=== PATIENT | female | born 1960 | race Caucasian/White ===

== ENCOUNTER 2019-01-18 16:39 | Observation (INO) | payer BC ==
[~2019-01-18] VITALS: Ht 175.3 cm; Wt 84.4 kg
[~2019-01-18 16:39] MED LIST: AMOXICILLIN/PO500 MG PO; HYZAAR1 TA2 PO; LEVOTHYROXIN25 MC1 PO; METOPROL TAR25 MG PO
--- NOTE | 2019-01-18 16:48 | NUR ---
PT TO ROOM FOR EXAM
[2019-01-18 17:11] LABS: URINE BILIRUBIN - DIPSTICK NEGATIVE (NEGATIVE); URINE BLOOD DIPSTICK NEGATIVE (NEGATIVE); URINE COLOR YELLOW; URINE GLUCOSE - DIPSTICK NEGATIVE (NEGATIVE); URINE KETONE NEGATIVE (NEGATIVE); URINE PROTEIN - DIPSTICK NEGATIVE (NEG-TRACE); URINE UROBILINOGEN - DIPSTICK 0.2 E.U./dL (0.2)
[2019-01-18 17:12] LABS: URINE LEUK ESTERASE SMALL (NEGATIVE); URINE NITRITE - DIPSTICK POSITIVE (Negative)
[2019-01-18 17:25] LABS: URINE RBC 0-2 RBC/hpf (0-5)
[2019-01-18 17:26] LABS: URINE BACTERIA FEW hpf; URINE SQUAMOUS EPITHELIAL CELL FEW EPI/hpf (0-FEW)
[2019-01-18 17:30] LABS: HEMATOCRIT 39.6 % (37.0-47.0); HEMOGLOBIN 13.6 g/dl (12.0-16.0); IMMATURE GRANULOCYTES 0.5 % (0.0-5.0); MEAN CELL VOLUME 94.1 fL CALC (80.0-100.0); MEAN CORPUSCULAR HGB 32.3 pG CALC (26.0-32.0); MEAN CORPUSCULAR HGB CONC 34.3 g/L CALC (32.0-36.0); NEUT# 5.53 thou/uL (2.00-7.15); RED BLOOD COUNT 4.21 mill/uL (4.20-5.60); RED CELL DISTRI WIDTH 12.8 % (11.5-15.5)
[2019-01-18 17:41] LABS: ALBUMIN 4.4 g/dL (3.2-5.0); ALKALINE PHOSPHATASE 170 u/l (38-126); AMYLASE 43 u/l (30-110); ANION GAP 15 (6-22 (CALC)); BILIRUBIN, TOTAL 0.7 mg/dL (0.0-1.4); BUN 14 mg/dL (7-17); BUN/CREATININE RATIO 14 (12-20 (CALC)); CARBON DIOXIDE 29 mmol/l (22-30); CHLORIDE 99 mmol/l (95-108); GFR 57 ML/MIN (>=60 (CALC)); GFR FOR AFR.AMER. > 60 ML/MIN (>=60 (CALC)); LIPASE 59 u/l (23-300); POTASSIUM 2.7 mmol/l (3.5-5.1); SGOT/AST 55 u/l (14-36); SODIUM 140 mmol/l (137-146); TOTAL PROTEIN 7.4 g/dL (6.3-8.2)
--- NOTE | 2019-01-18 17:45 | NUR ---
PATIENT RESTING AWIAITNG LAB RESULTS. PATIENT DENIES ANY N, OR VOMITING AT THIS TIME
--- NOTE | 2019-01-18 18:46 | NUR ---
MD AT BEDSIDE DISCUSSING RESULTS WITH PATIENT. PATIENT DENIES ANY PAIN AT THIS TIME
--- NOTE | 2019-01-18 19:02 | NUR ---
REPORT TO SIMON HECTOR
--- NOTE | 2019-01-18 19:03 | NUR ---
RECEIVED REPORT FROM TAWNY BALLARD
--- NOTE | 2019-01-18 19:20 | NUR ---
REPORT CALLED TO .
--- NOTE | 2019-01-18 19:33 | NUR ---
SECOND LACTIC ACID DRAWN BY LAB AND TO MS VIA W/C. ON TELEMETRY WITH POTASSIUM IN IV INFUSING RX
--- NOTE | 2019-01-18 19:35 | NUR ---
TO MS VIA W/C
[2019-01-18 19:36] VITALS: BP 134/71
--- NOTE | 2019-01-18 19:36 | NUR ---
PATIENT ARRIVED TO FLOOR, TRANSPORTED VIA WHEELCHAIR, PATIENT SETTLED IN BED, ORIENTED TO ROOM AND CALL LIGHT SYSTEM.WILL CONTINUE TO MONITOR.
--- NOTE | 2019-01-18 21:00 | NUR ---
PATIENT CURRENTLY SITTING IN BED, IN ROOM, WITH AN ONGOING IV OF NS +[id number] INFUSING WELL ON LAC @ 125CC/HR, ON TELE SR 69, DENIES N/V AT THIS TIME, CALL LIGHT AT REACH.
--- NOTE | 2019-01-19 | NUR ---
PATIENT RESTING IN BED EYES CLOSED NO DISCOMFORTS NOTED AT THIS TIME, CALL LIGHT AT REACH.
[2019-01-19 03:50] VITALS: BP 140/82
--- NOTE | 2019-01-19 04:00 | NUR ---
PATIENT ASSISTED TO THE BATHROOM, DENIES PAIN OR DISCOMFORT, DENIES N/V, ASSISTED BACK TO BED, CALL LIGHT AT REACH.
[2019-01-19 05:19] LABS: MEAN CELL VOLUME 96.9 fL CALC (80.0-100.0); MEAN CORPUSCULAR HGB 32.5 pG CALC (26.0-32.0); MEAN CORPUSCULAR HGB CONC 33.5 g/L CALC (32.0-36.0); RED BLOOD COUNT 3.51 mill/uL (4.20-5.60); RED CELL DISTRI WIDTH 12.8 % (11.5-15.5)
[2019-01-19 05:21] LABS: HEMOGLOBIN 11.4 g/dl (12.0-16.0)
[2019-01-19 05:37] LABS: ANION GAP 10 (6-22 (CALC)); BUN 11 mg/dL (7-17); BUN/CREATININE RATIO 13 (12-20 (CALC)); CARBON DIOXIDE 28 mmol/l (22-30); CHLORIDE 106 mmol/l (95-108); CREATININE 0.9 mg/dL (0.5-1.0); GFR > 60 ML/MIN (>=60 (CALC)); GFR FOR AFR.AMER. > 60 ML/MIN (>=60 (CALC)); MAGNESIUM 1.6 mg/dL (1.6-2.3); SODIUM 141 mmol/l (137-146)
[2019-01-19 05:52] LABS: POTASSIUM 3.4 mmol/l (3.5-5.1)
--- NOTE | 2019-01-19 07:10 | NUR ---
PT REPORT RECIEVED FROM TAWNY JUAREZ. PT SLEEPING. NO S/S OF DISTRESS. CALL LIGHT IN REACH. WILL CONTINUE TO MONITOR.
[2019-01-19 08:37] VITALS: BP 104/55
--- NOTE | 2019-01-19 08:37 | NUR ---
PT A/O X3. SPEECH IS CLEAR. RESP EVEN AND UNLABORED. LUNG SOUNDS CLEAR. BOWEL SOUNDS ACTIVE X4. STRONG RADIAL AND PEDAL PULSES. #20 LAC NS @100. SITE APPEARS HEALTHY. SKIN INTACT. PT DENIES ANY PAIN OR NEEDS. POC DISCUSSED. SAFETY PRECAUTIONS IN PLACE. CALL LIGHT IN REACH. WILL CONTINUE TO MONITOR.
[2019-01-19 11:09] VITALS: BP 102/50
[2019-01-19] MEDS ORDERED: ZOFRAN ODT4 MG PO (12:25)
[2019-01-19] MEDS ORDERED: KEFLEX500 MG PO (12:25)
--- NOTE | 2019-01-19 12:36 | NUR ---
PT WATCHING TELEVISION. NO C/O PAIN OR NEEDS. CALL LIGHT IN REACH. WILL CONTINUE TO MONITOR.
== END 2019-01-19 14:04 | disposition home or self-care (01) | DRG 392 ==
LOC: ED 16:39 → ED-I 18:36 → ED 18:49 → MS2 18:50
PROVIDERS: Emergency Medicine; ADMIT Internal Medicine; ATTEND Internal Medicine
DX: A08.4 Viral intestinal infection, unspecified (principal); N39.0 Urinary tract infection, site not specified; K51.90 Ulcerative colitis, unspecified, without complications; E87.6 Hypokalemia; B96.20 Unspecified Escherichia coli [E. coli] as the cause of diseases classified elsewhere; I10 Essential (primary) hypertension; M19.90 Unspecified osteoarthritis, unspecified site
CPT/HCPCS: G0378; J1650; Q9967

== ENCOUNTER 2023-03-30 21:19 | Emergency (ER) | payer BC ==
[~2023-03-30] VITALS: Ht 175.3 cm; Wt 79.0 kg
[~2023-03-30 21:19] MED LIST changes: +KEFLEX500 MG PO; +ZOFRAN ODT4 MG PO
[2023-03-30 21:26] VITALS: BP 176/92
[2023-03-30 21:30] VITALS: BP 153/91
[2023-03-30 22:00] LABS: BASO% 0.5 % (0-3); EOS% 0.3 % (0-8); HEMATOCRIT 35.8 % (37.0-47.0); IMMATURE GRANULOCYTES 0.3 % (0.0-5.0); LYMPH% 25.5 % (15-41); MEAN CELL VOLUME 91.6 fL CALC (80.0-100.0); MEAN CORPUSCULAR HGB 30.7 pG CALC (26.0-32.0); MEAN CORPUSCULAR HGB CONC 33.5 g/dL CAL (32.0-36.0); MONO% 6.8 % (2-13); NEUT# 6.07 thou/uL (2.00-7.15); NEUT% 66.6 % (42-76); RED BLOOD COUNT 3.91 mill/uL (4.20-5.60); RED CELL DISTRI WIDTH 12.7 % (11.5-15.5)
[2023-03-30 22:10] LABS: ALBUMIN 4.2 g/dL (3.2-5.0); BILIRUBIN, TOTAL 0.4 mg/dL (0.02-1.3); CREATININE 1.3 mg/dL (0.5-1.0); POTASSIUM 3.8 mmol/l (3.5-5.1); TOTAL PROTEIN 7.4 g/dL (6.3-8.2)
[2023-03-30] MEDS ORDERED: LORTAB 1010 MG PO (22:27)
[2023-03-30] MEDS ORDERED: BACTRIM DS1 TAB PO (22:27)
[2023-03-30] MEDS ORDERED: KEFLEX500 MG PO (22:27)
[2023-03-30 22:37] VITALS: BP 153/91
== END 2023-03-30 22:55 | disposition home or self-care (01) | DRG 125 ==
LOC: ED 21:19
PROVIDERS: Emergency Medicine
DX: H01.004 Unspecified blepharitis left upper eyelid (principal); J34.0 Abscess, furuncle and carbuncle of nose; I10 Essential (primary) hypertension

== ENCOUNTER 2024-05-25 08:09 | Day surgery (SDC) | payer BC ==
[~2024-05-25] VITALS: Ht 172.7 cm; Wt 78.9 kg
[~2024-05-25 08:09] MED LIST changes: +AMLODIPINE BESYL5 MG PO; +BACTRIM DS1 TAB PO; +FLEXERIL5 M1 PO; +GABAPENTIN300 M2 PO; +HYDROCHLOROT25 MG PO; +LORTAB 1010 MG PO; +METFORMIN500 M2 PO; +OMEPRAZOLE DR40 MG PO; +ONDANSETRON4 MG PO; +TAMSULOSIN0.4 MG PO; +TORADOL PO
[2024-05-25] MEDS ORDERED: FAMOTIDINE 10MG/ML 2ML SDV IV ONE (08:14)
[2024-05-25] MEDS ORDERED: SODIUM CHLORIDE 0.9% 1,000 ML IV ONE ×2 (08:15→09:18)
[2024-05-25 10:32] VITALS: BP 127/76
[2024-05-25] MEDS ORDERED: PROPOFOL 200 MG/20 ML VIAL IV ONE (15:08)
[2024-05-25] MEDS ORDERED: LIDOCAINE HCL 2% 2ML SDV IV ONE (15:08)
[2024-05-25] MEDS ORDERED: GLYCOPYRROLATE 0.2 MG/ML IV ONE (15:08)
== END 2024-05-25 10:40 | disposition home or self-care (01) | DRG 812 ==
LOC: ENDO 08:09 → ORM 10:05 → ENDO 10:40 → ORM 11:30
PROVIDERS: ATTEND Internal Medicine Gastroenterology
PROC: 0DBK8ZX Excision of Ascending Colon, Via Natural or Artificial Opening Endoscopic, Diagnostic (ICD-10-PCS; principal; 2024-05-25)
PROC: 0DBL8ZX Excision of Transverse Colon, Via Natural or Artificial Opening Endoscopic, Diagnostic (ICD-10-PCS; 2024-05-25)
PROC: 0DBN8ZX Excision of Sigmoid Colon, Via Natural or Artificial Opening Endoscopic, Diagnostic (ICD-10-PCS; 2024-05-25)
PROC: 0DBP8ZX Excision of Rectum, Via Natural or Artificial Opening Endoscopic, Diagnostic (ICD-10-PCS; 2024-05-25)
PROC: 0DBM8ZX Excision of Descending Colon, Via Natural or Artificial Opening Endoscopic, Diagnostic (ICD-10-PCS; 2024-05-25)
PROC: 0DBH8ZX Excision of Cecum, Via Natural or Artificial Opening Endoscopic, Diagnostic (ICD-10-PCS; 2024-05-25)
PROC: 0DB98ZX Excision of Duodenum, Via Natural or Artificial Opening Endoscopic, Diagnostic (ICD-10-PCS; 2024-05-25)
PROC: 0DB78ZX Excision of Stomach, Pylorus, Via Natural or Artificial Opening Endoscopic, Diagnostic (ICD-10-PCS; 2024-05-25)
PROC: 0DB48ZX Excision of Esophagogastric Junction, Via Natural or Artificial Opening Endoscopic, Diagnostic (ICD-10-PCS; 2024-05-25)
DX: D64.9 Anemia, unspecified (principal); K21.00 Gastro-esophageal reflux disease with esophagitis, without bleeding; K29.50 Unspecified chronic gastritis without bleeding; K31.7 Polyp of stomach and duodenum; K64.8 Other hemorrhoids; M06.9 Rheumatoid arthritis, unspecified; I10 Essential (primary) hypertension; E03.9 Hypothyroidism, unspecified; Z87.19 Personal history of other diseases of the digestive system